=== PATIENT | male | born 1990 | race Caucasian/White ===

== ENCOUNTER 2018-05-30 19:51 | Emergency (ER) | payer SELFPAY ==
[~2018-05-30] VITALS: Ht 162.6 cm; Wt 68.0 kg
[2018-05-30 20:15] VITALS: Ht 162.6 cm; Wt 68.0 kg
[2018-05-30 20:31] LABS: BASOPHIL % 1.9 % (0-2)
[2018-05-30 20:32] LABS: PLATELET COUNT 499 x10^3mcL (130-400); RED CELL DISTRIBUTION WIDTH 14.9 % (11.5-14.5)
[2018-05-30 20:34] LABS: CHLORIDE SERUM 105 mmol/L (98-107); CREATININE SERUM 1.2 mg/dL (0.7-1.3); GFR1 > 60 mL/min; GLUCOSE SERUM 130 mg/dL (74-106); POTASSIUM SERUM 3.1 mmol/L (3.5-5.1); SODIUM SERUM 142 mmol/L (136-145)
[2018-05-30 20:38] LABS: ALBUMIN 3.9 g/dL (3.4-5.0); ALKALINE PHOSPHATASE 135 U/L (46-116); ALT/SGPT 57 U/L (16-63); AST/SGOT 34 U/L (15-37); BILIRUBIN TOTAL 0.92 mg/dL (0.20-1.00)
[2018-05-30 20:39] LABS: TOTAL PROTEIN, SERUM 8.4 g/dL (6.4-8.2)
[2018-05-30 22:16] LABS: AMPHETAMINE QUAL UR POSITIVE (See below)
[2018-05-30 23:34] VITALS: BP 101/55
== END 2018-05-30 23:34 | disposition home or self-care (01) ==
LOC: ED 19:51
PROVIDERS: Emergency Medicine
DX: F10.129 Alcohol abuse with intoxication, unspecified (principal); F15.90 Other stimulant use, unspecified, uncomplicated
CPT/HCPCS: 36415; G0480; J7030